=== PATIENT | female | born 1940 | race Caucasian/White ===

== ENCOUNTER 2016-09-12 15:45 | Emergency (ER) | payer MEDICARE, OTHER ==
[~2016-09-12] VITALS: Ht 160 cm; Wt 86.0 kg
[~2016-09-12 15:45] MED LIST: ALLE10TA5 PO; APIX5TAB PO; ATOR20TA PO; CITRTAB7 PO; CLON.5 PO; DEPA500T3 PO; DIOV160T3 PO; LEVO50TA4 PO; LEVO75TA3 PO; METO25CR PO; MIRTA15 PO; NEUR800T PO; PRIL40CA PO; VENL75TA91 PO; VENL75XR PO
[2016-09-12 15:56] VITALS: BP 149/92; PULSE 84; RESP 16; TEMP 98; O2SAT 97
--- NOTE | 2016-09-12 16:30 | PD ---
HPI Chief Complaint: Suicide Ideation/Attempt Time Seen by Provider: 16:20 Travel History International Travel<30 days: No Contact w/Intl Traveler<30days: No Traveled to known affect area: No History of Present Illness HPI 76-year-old female who reportedly has a history of bipolar disorder. She presents under Woods act initiated by her primary care physician today. According to her paperwork the patient said that she was feeling suicidal. The patient reports over the past 2 weeks she has been experiencing some pain in the lower portion of her abdomen. She had difficulty getting an appointment with her primary care physician, was finally able to see her today. When she arrived she was feeling emotional, she was crying and she has been experiencing some depression. She did say that she was feeling suicidal but now regrets saying that and she does not truly want to kill herself. In regards to the abdominal pain she describes it as an aching pain which is constant. She endorses occasional nausea. Denies vomiting, fevers or chills, flank pain, dysuria, vaginal bleeding or discharge, diarrhea. History of appendectomy in the past. No other complaints. PFSH Past Medical History Hx Anticoagulant Therapy: Yes (COUMADIN) Asthma: No Heart Rhythm Problems: No Cancer: No Cardiovascular Problems: Yes High Cholesterol: Yes Chest Pain: No Congestive Heart Failure: No COPD: No Cerebrovascular Accident: No Diabetes: No Diminished Hearing: No Endocrine: Yes GERD: Yes Genitourinary: No Headaches: Yes (Migraines) Hiatal Hernia: Yes Hypertension: Yes Immune Disorder: No Musculoskeletal: Yes Psychiatric: Yes (Previous diagnosed with bi-polar) Reproductive: No Respiratory: Yes (CURRENT MAXILLARY SINUSITIS) Migraines: Yes Seizures: No Sleep Apnea: Yes Thyroid Disease: Yes ?: Not Past Surgical History Abdominal Surgery: Yes (APPEND) Appendectomy: Yes Oral Surgery: Yes (EGD) Pacemaker: No Other Surgery: Yes Social History Alcohol Use: No Tobacco Use: No Substance Use: No Allergies-Medications (Allergen,Severity, Reaction): Coded Allergies: Penicillin (Unverified Allergy, Severe, HIVES, 11/27/11) Sulfa (Unverified Allergy, Unknown, 11/27/11) Lactose (Unverified Allergy, 11/27/11) Uncoded Allergies: CAT GUT SUTURE (Allergy, Severe, 11/27/11) Reported Meds & Prescriptions Reported Meds & Active Scripts Active Macrobid (Nitrofurantoin Monoh/Nitrofur Macro) 100 Mg Cap 100 Mg PO BID 7 Days Reported Coumadin (Warfarin) 5 Mg Tab 5 Mg PO SUTUTHFRSA ON HOLD OF 09/10/2016 Take 1 tablet daily at 5pm on Friday,Friday,,Friday and Friday Coumadin (Warfarin) 2.5 Mg Tab 2.5 Mg PO MOWE ON HOLD OF 09/10/2016 Take 1 tablet daily at 5pm on Friday and Friday Diovan (Valsartan) 160 Mg Tab 160 Mg PO DAILY Carafate (Sucralfate) 1 Gm Tab 1 Gm PO BID On empty stomach Sertraline (Sertraline HCl) 50 Mg Tab 50 Mg PO DAILY Robafen (Guaifenesin) 100 Mg/5 Ml Syp 10 Ml PO Q4HR PRN Potassium Chloride ER (Potassium Chloride) 20 Meq Tab 20 Meq PO DAILY Omeprazole 40 Mg Cap 40 Mg PO DAILY Ocusoft Baby Eyelid & Eye (Eyelid Cleansers) 1 Pad Pad 1 Applic TOPICAL TID Unfold and wrap on finger,close eye then gently cleanse eyelid using side to side strokes *do not touch eye* then rinse. Rulox Liq (Zjyyhfff-Uqexhvacj-Uknmhkjvroz Liq) 200-200-20 Mg/5 Ml Susp 15 Ml PO QID PRN Take between meals or as directed. Shake well. Maximum 120 ml/24 hrs. Mobic (Meloxicam) 7.5 Mg Tab 7.5 Mg PO DAILY Ativan (Lorazepam) 0.5 Mg Tab 0.5 Mg PO BID PRN Ativan (Lorazepam) 0.5 Mg Tab 0.5 Mg PO BID Levothyroxine (Levothyroxine Sodium) 75 Mcg Tab 75 Mcg PO DAILY Gabapentin 100 Mg Cap 100 Mg PO TID Lasix (Furosemide) 20 Mg Tab 20 Mg PO DAILY Deepali Allergy (Fexofenadine HCl) 180 Mg Tab 180 Mg PO DAILY Depakote ER (Divalproex Sodium) 500 Mg Venu 500 Mg PO BID Bentyl (Dicyclomine HCl) 10 Mg Cap 10 Mg PO TID PRN Coricidin HBP Chest Congestion (Dextromethorphan-Guaifenesin) 10-200 Mg Cap 2 Cap PO Q4H PRN Coreg (Carvedilol) 6.25 Mg Tab 6.25 Mg PO BID Calcium 600 + D (Calcium Carbonate-Vitamin D) 600-400 Mg-Unit Tab 2 Tab PO DAILY Lipitor (Atorvastatin Calcium) 40 Mg Tab 40 Mg PO HS Artificial Tears Opth Drops (Polyvinyl Alcohol) 1.4% Soln 1 Drop EACH EYE QID PRN Tylenol Extra Strength (Acetaminophen) 500 Mg Tab 500 Mg PO BID PRN Vitamin D-1000 (Cholecalciferol) 1,000 Unit Tab 1,000 Units PO DAILY Review of Systems Except as stated in HPI: all other systems reviewed are Neg Physical Exam Narrative GENERAL: Well-developed well-nourished female in no acute distress SKIN: Warm and dry. HEAD: Atraumatic. Normocephalic. EYES: Pupils equal and round. No scleral icterus. No injection or drainage. ENT: No nasal bleeding or discharge. Mucous membranes pink and moist. NECK: Trachea midline. No JVD. CARDIOVASCULAR: Regular rate and rhythm. No murmur appreciated. RESPIRATORY: No accessory muscle use. Clear to auscultation. Breath sounds equal bilaterally. GASTROINTESTINAL: Abdomen soft, epigastric/lower abdominal tenderness to palpation without guarding. No CVA tenderness. Nondistended. MUSCULOSKELETAL: No obvious deformities. No edema. NEUROLOGICAL: Awake and alert. No obvious cranial nerve deficits. Motor grossly within normal limits. Normal speech. PSYCHIATRIC: Depressed mood. Insight and judgment are intact. Data Data Last Documented VS Vital Signs Date Time Temp Pulse Resp B/P Pulse Ox O2 Delivery O2 Flow Rate FiO2 09/12/16 15:56 98.0 84 16 149/92 97 Orders Electrocardiogram (09/12/16 15:57) Complete Blood Count With Diff (09/12/16 15:57) Comprehensive Metabolic Panel (09/12/16 15:57) Psych Screen (09/12/16 15:57) Diet Regular Basic (09/12/16 Dinner) Drug Screen, Random Urine (09/12/16 15:57) Prothrombin Time / Inr (Pt) (09/12/16 15:57) Urinalysis - C+S If Indicated (09/12/16 16:16) Lipase (09/12/16 16:24) Ct Abd/Pel W Iv Contrast(Rout) (09/12/16 16:24) Iohexol 350 Inj (Omnipaque 350 Inj) (09/12/16 19:44) Urine Culture (09/12/16 19:25) Nitrofurantoin Monohyd Macrocr (Macrobid (09/12/16 20:30) Labs Laboratory Tests Test 09/12/16 09/12/16 16:08 19:25 White Blood Count 6.9 TH/MM3 Red Blood Count 4.63 MIL/MM3 Hemoglobin 13.4 GM/DL Hematocrit 40.1 % Mean Corpuscular Volume 86.7 FL Mean Corpuscular Hemoglobin 28.9 PG Mean Corpuscular Hemoglobin 33.3 % Concent Red Cell Distribution Width 13.7 % Platelet Count 218 TH/MM3 Mean Platelet Volume 8.8 FL Neutrophils (%) (Auto) 67.1 % Lymphocytes (%) (Auto) 23.7 % Monocytes (%) (Auto) 7.0 % Eosinophils (%) (Auto) 1.9 % Basophils (%) (Auto) 0.3 % Neutrophils # (Auto) 4.6 TH/MM3 Lymphocytes # (Auto) 1.6 TH/MM3 Monocytes # (Auto) 0.5 TH/MM3 Eosinophils # (Auto) 0.1 TH/MM3 Basophils # (Auto) 0.0 TH/MM3 CBC Comment DIFF FINAL Differential Comment Prothrombin Time 53.5 SEC Prothromb Time International 4.5 RATIO Ratio Sodium Level 132 MEQ/L Potassium Level 4.1 MEQ/L Chloride Level 94 MEQ/L Carbon Dioxide Level 29.6 MEQ/L Anion Gap 8 MEQ/L Blood Urea Nitrogen 14 MG/DL Creatinine 0.74 MG/DL Estimat Glomerular Filtration 76 ML/MIN Rate Random Glucose 93 MG/DL Calcium Level 8.8 MG/DL Total Bilirubin 0.4 MG/DL Aspartate Amino Transf 32 U/L (AST/SGOT) Alanine Aminotransferase 25 U/L (ALT/SGPT) Alkaline Phosphatase 50 U/L Total Protein 6.5 GM/DL Albumin 3.1 GM/DL Lipase 111 U/L Urine Color YELLOW Urine Turbidity CLEAR Urine pH 5.5 Urine Specific [place] 1.016 Urine Protein TRACE mg/dL Urine Glucose (UA) NEG mg/dL Urine Ketones 40 mg/dL Urine Occult Blood TRACE Urine Nitrite NEG Urine Bilirubin NEG Urine Urobilinogen LESS THAN 2.0 MG/DL Urine Leukocyte Esterase LARGE Urine RBC 5 /hpf Urine WBC 78 /hpf Urine Squamous Epithelial <1 /hpf Cells Urine Bacteria OCC /hpf Urine Hyaline Casts 3 /lpf Urine Mucus FEW /lpf Microscopic Urinalysis Comment CULTURE INDICATED Urine Opiates Screen NEG Urine Barbiturates Screen NEG Urine Amphetamines Screen NEG Urine Benzodiazepines Screen NEG Urine Cocaine Screen NEG Urine Cannabinoids Screen NEG MDM Medical Decision Making Medical Screen Exam Complete: Yes Emergency Medical Condition: Yes Medical Record Reviewed: Yes Differential Diagnosis Adjustment reaction, major depressive disorder, depressive disorder not otherwise specified, bipolar disorder, acute psychosis Pancreatitis, obstruction, gastritis, peptic ulcer disease, diverticulitis, mesenteric ischemia Narrative Course 76-year-old female presents under Woods act initiated by her primary care physician for depression, suicidal statements. The patient was seen by her primary care physician for evaluation of abdominal pain which she has been experiencing for 2 weeks. On examination she has epigastric, lower abdominal tenderness to palpation without guarding. Plans for basic lab work, CT abdomen and pelvis, urinalysis. Unfortunately there is a delay in obtaining the CT abdomen and pelvis because of 2 trauma alerts. The patient's lab work has been reviewed. Her INR is supratherapeutic at 4.5. She is aware of this based on INR testing as an outpatient 2 days ago, she has been holding her Coumadin for the past 2 days Mental health screening discussed with the patient. Psychiatric screen ordered. Urinalysis is consistent with urinary tract infection. Macrobid has been initiated. CT abdomen and pelvis is normal. The patient is medically cleared for psychiatric disposition. Diagnosis Primary Impression: Depression Qualified Code: F32.9 - Depression, unspecified depression type Additional Impressions: Urinary tract infection Qualified Code: N30.01 - Acute cystitis with hematuria Supratherapeutic INR Scripts Nitrofurantoin Monohydrate Macrocrystals (Macrobid)100 Mg [id number] Mg PO BID 7 Days Ref 0 Prov:Norris Fernando MD 09/12/16 Juwan Fay September 12, 2016 16:30
[2016-09-12 16:38] LABS: INTERNATIONAL NORMALIZED RATIO 4.5 RATIO; PROTHROMBIN TIME - PATIENT 53.5 SEC (9.8-11.6)
[2016-09-12 16:43] LABS: AUTOMATED NEUTROPHIL # 4.6 TH/MM3 (1.8-7.7); BASOPHIL % 0.3 % (0.0-2.0); EOSINOPHIL # 0.1 TH/MM3 (0-0.4); EOSINOPHIL % 1.9 % (0.0-4.0); HEMATOCRIT 40.1 % (35.0-46.0); HEMO FLAGS DIFF FINAL; LYMPH % 23.7 % (9.0-44.0); LYMPHOCYTE # 1.6 TH/MM3 (1.0-4.8); MEAN CELL VOLUME 86.7 FL (80.0-100.0); MEAN CORPUSCULAR HEMOGLOBIN 28.9 PG (27.0-34.0); MEAN CORPUSCULAR HGB CONC 33.3 % (32.0-36.0); NEUT % 67.1 % (16.0-70.0); PLATELET COUNT 218 TH/MM3 (150-450); RED BLOOD COUNT 4.63 MIL/MM3 (4.00-5.30); RED CELL DISTRIBUTION WIDTH 13.7 % (11.6-17.2); WHITE BLOOD COUNT 6.9 TH/MM3 (4.0-11.0)
[2016-09-12 16:53] LABS: ALT (GPT) 25 U/L (10-53); ANION GAP 8 MEQ/L (5-15); AST (GOT) 32 U/L (15-37); BICARBONATE 29.6 MEQ/L (21.0-32.0); BLOOD UREA NITROGEN 14 MG/DL (7-18); CHLORIDE 94 MEQ/L (98-107); GLOMERULAR FILTRATION RATE 76 ML/MIN (>89); POTASSIUM 4.1 MEQ/L (3.5-5.1); SODIUM (NA) 132 MEQ/L (136-145)
[2016-09-12 16:55] LABS: ALKALINE PHOSPHATASE 50 U/L (45-117); TOTAL BILIRUBIN ADULT 0.4 MG/DL (0.2-1.0)
[2016-09-12] MEDS ORDERED: VITA1000 PO (17:42)
[2016-09-12] MEDS ORDERED: ACET-703 PO (17:42)
[2016-09-12] MEDS ORDERED: COUM5TAB PO (18:05)
[2016-09-12] MEDS ORDERED: FEXO15TA PO (18:05)
[2016-09-12] MEDS ORDERED: OMEP40CA2 PO (18:05)
[2016-09-12] MEDS ORDERED: RULOSUS PO (18:05)
[2016-09-12] MEDS ORDERED: DIOV160T6 PO (18:05)
[2016-09-12] MEDS ORDERED: GABA100C4 PO (18:05)
[2016-09-12] MEDS ORDERED: POTA-163 PO (18:05)
[2016-09-12] MEDS ORDERED: COUM2.5T PO (18:05)
[2016-09-12] MEDS ORDERED: LEVO75TA3 PO (18:05)
[2016-09-12] MEDS ORDERED: DEPA500T3 PO (18:05)
[2016-09-12] MEDS ORDERED: MOBI7.5T PO (18:05)
[2016-09-12] MEDS ORDERED: CORICAP PO (18:05)
[2016-09-12] MEDS ORDERED: FURO1TAB62 PO (18:05)
[2016-09-12] MEDS ORDERED: ROBA100S5 PO (18:05)
[2016-09-12] MEDS ORDERED: POLY99.0 EACH EYE (18:05)
[2016-09-12] MEDS ORDERED: DICY10 PO (18:05)
[2016-09-12] MEDS ORDERED: CARV6.25 PO (18:05)
[2016-09-12] MEDS ORDERED: [UNRECOGNIZED DRUG - CODE] TOPICAL (18:05)
[2016-09-12] MEDS ORDERED: LORA-392 PO (18:05)
[2016-09-12] MEDS ORDERED: LIPI40TA PO (18:05)
[2016-09-12] MEDS ORDERED: SERT-132 PO (18:05)
[2016-09-12] MEDS ORDERED: CARA1TAB6 PO (18:05)
[2016-09-12] MEDS ORDERED: CALCTAB70 PO (18:05)
[2016-09-12] MEDS ORDERED: IOHEXOL 350 MG/ML 10 ML VIAL (for RAD DIAG) IV ONE (19:44)
[2016-09-12 19:50] LABS: BACTERIA, URINE OCC /hpf; BLOOD, URINE TRACE (NEG); GLUCOSE,URINE NEG (NEG); HYALINE CAST, URINE 3 /lpf (RARE); KETONE, URINE 40 mg/dL (NEG); MUCUS URINE FEW /lpf (OCC); NITRITE,URINE NEG (NEG); PH, URINE 5.5 (5.0-8.5); SQUAMOUS EPITHELIAL CELL URINE <1 /hpf (0-5); URINE COLOR YELLOW (YELLW/STRAW)
[2016-09-12 19:52] LABS: COMMENT (UR) CULTURE INDICATED; CULTURE IF INDICATED CULTURE INDICATED
[2016-09-12 20:04] LABS: AMPHETAMINE, URINE NEG (NEG); BARBITURATES, URINE NEG (NEG); COCAINE, URINE NEG (NEG)
--- NOTE | 2016-09-12 20:21 | RADRPT ---
EXAM DATE/TIME: 09/12/2016 19:30 [place] COMPARISON: No previous studies available for comparison. INDICATIONS : Lower abdominal pain. IV CONTRAST: 100 cc Omnipaque 350 (iohexol) IV ORAL CONTRAST: No oral contrast ingested. RADIATION DOSE: 14.88 CTDIvol (mGy) MEDICAL HISTORY : Hypertension. Reflux, and hiatal hernia SURGICAL HISTORY : Appendectomy. ENCOUNTER: Initial ACUITY: 1 day PAIN SCALE: 7/10 LOCATION: Bilateral lower quadrant abdomen TECHNIQUE: Volumetric scanning of the abdomen and pelvis was performed. Using automated exposure control and ad justment of the mA and/or kV according to patient size, radiation dose was kept as low as reasonably achievable to obtain optimal diagnostic quality images. FINDINGS: Lung bases are clear. Large hiatal hernia is evident. The liver is free of focal defects. The sple en, pancreas and adrenals are unremarkable. There is symmetrical renal function with a large parapelv ic cyst. Marked scoliosis is evident. Previous abdominal wall hernia is noted. There are scattered diverticula in the sigmoid colon without diverticulitis. Bladder is unremarkable . CONCLUSION: 1. I do not see an etiology for the patient's lower abdominal pain. 2. Marked scoliosis. Sandoval Martinez MD FACR on September 12, 2016 at 20:06 Board Certified Radiologist. This report was verified electronically.
[2016-09-12] MEDS ORDERED: MACR100C2 PO (20:26)
[2016-09-12 20:34] VITALS: BP 145/98; PULSE 81; RESP 16; TEMP 98.4; O2SAT 98
[2016-09-12] MEDS: NITROFURANTOIN MONOHYD MACROCR 100 MG CAP PO SCH (20:42)
[2016-09-13 00:10] VITALS: PULSE 79; RESP 16; O2SAT 97
[2016-09-13] MEDS ORDERED: ONDANSETRON ODT 4 MG TAB PO ONE (02:00)
[2016-09-13 08:21] VITALS: BP 121/86; PULSE 86; RESP 16; TEMP 98.3; O2SAT 94
--- NOTE | 2016-09-13 08:46 | PD ---
History of Present Illness Chief Complaint: Suicide Ideation/Attempt Time Seen by Provider: 08:30 Travel History International Travel<30 Days: No Contact w/Intl Traveler<30days: No Known affected area: No Legal Status Legal Status: Woods Act Woods Act Signed By: Carine Woods Act Comment: BA 09/12/16 at 1430 with thoughts of SI History of Present Illness: History of Present Illness HPI 76-year-old female with a history of bipolar disorder who presents to [facility] ED under a BA initiated by her primary care physician. The paperwork indicates that the patient told her PCP that she was thinking about suicide. As per ed documentation included in this report " The patient reports over the past 2 weeks she has been experiencing some pain in the lower portion of her abdomen. She had difficulty getting an appointment with her primary care physician, was finally able to see her today. When she arrived she was feeling emotional, she was crying and she has been experiencing some depression. She did say that she was feeling suicidal but now regrets saying that and she does not truly want to kill herself." Patient seen. Record reviewed. She has one previous admission to [facility] in 2015 after a suicide attempt by overdosing on Klonopin. Patient is awake, alert, oriented and cooperative. Speech is clear, logical and goal directed. Minor difficulty with word finding. No sushant or hypomania and no psychosis. Admits to feeling sad over her medical issues, missing her family who live in [facility] and she has not seen them in over one year. Denies any suicidal or homicidal ideation, intent or plan. " I don't want to kill myself. I just want help in coping with life. There is a psychiatric nurse at the [facility] where she lives and she has talked with her . She is waiting for an appointment with a psychiatrist. She also has a male friend at the [facility] that she is close with and finds him to be supportive. PFSH Past Medical History Hx Anticoagulant Therapy: Yes (COUMADIN) Arthritis: Yes Asthma: No Heart Rhythm Problems: No Cancer: No Cardiovascular Problems: Yes High Cholesterol: Yes Chest Pain: No Congestive Heart Failure: No COPD: No Cerebrovascular Accident: No Diabetes: No Diminished Hearing: No Endocrine: Yes Gastrointestinal Disorders: Yes GERD: Yes Genitourinary: No Headaches: Yes (Migraines) Hiatal Hernia: Yes Hypertension: Yes Immune Disorder: No Musculoskeletal: Yes Psychiatric: Yes (Previous diagnosed with bi-polar) Reproductive: No Respiratory: Yes (CURRENT MAXILLARY SINUSITIS) Migraines: Yes Seizures: No Sleep Apnea: Yes Thyroid Disease: Yes Tetanus Vaccination: Unknown Influenza Vaccination: No ?: Not Menopausal: Yes Past Surgical History Abdominal Surgery: Yes (APPEND) Appendectomy: Yes Oral Surgery: Yes (EGD) Pacemaker: No Other Surgery: Yes Psychiatric History Psychiatric History Hx Psychiatric Treatment: Inpatient: 23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 Last admission in 2014 in [facility] Has received ECT History of Inpatient Treatment: Yes Guns or firearms in home: No Social History . x 2 . 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 [employer] Lives in [facility] x 2 years Hx Alcohol Use: No Hx Tobacco Use: No Hx Substance Use: No Hx of Substance Use Treatment: No Family Psychiatric History Negative Allergies-Medications (Allergen,Severity, Reaction): Coded Allergies: Penicillin (Unverified Allergy, Severe, HIVES, 11/27/11) Sulfa (Unverified Allergy, Unknown, 11/27/11) Lactose (Unverified Allergy, 11/27/11) Uncoded Allergies: CAT GUT SUTURE (Allergy, Severe, 11/27/11) Reported Meds & Prescriptions Reported Meds & Active Scripts Active Macrobid (Nitrofurantoin Monoh/Nitrofur Macro) 100 Mg Cap 100 Mg PO BID 7 Days Reported Coumadin (Warfarin) 5 Mg Tab 5 Mg PO SUTUTHFRSA ON HOLD OF 09/10/2016 Take 1 tablet daily at 5pm on Friday,Friday,,Friday and Friday Coumadin (Warfarin) 2.5 Mg Tab 2.5 Mg PO ON HOLD OF 09/10/2016 Take 1 tablet daily at 5pm on Friday and Friday Diovan (Valsartan) 160 Mg Tab 160 Mg PO DAILY Carafate (Sucralfate) 1 Gm Tab 1 Gm PO BID On empty stomach Sertraline (Sertraline HCl) 50 Mg Tab 50 Mg PO DAILY Robafen (Guaifenesin) 100 Mg/5 Ml Syp 10 Ml PO Q4HR PRN Potassium Chloride ER (Potassium Chloride) 20 Meq Tab 20 Meq PO DAILY Omeprazole 40 Mg Cap 40 Mg PO DAILY Ocusoft Baby Eyelid & Eye (Eyelid Cleansers) 1 Pad Pad 1 Applic TOPICAL TID Unfold and wrap on finger,close eye then gently cleanse eyelid using side to side strokes *do not touch eye* then rinse. Rulox Liq (Dazkwokr-Wbezyhkgm-Cpyikkbyuai Liq) 200-200-20 Mg/5 Ml Susp 15 Ml PO QID PRN Take between meals or as directed. Shake well. Maximum 120 ml/24 hrs. Mobic (Meloxicam) 7.5 Mg Tab 7.5 Mg PO DAILY Ativan (Lorazepam) 0.5 Mg Tab 0.5 Mg PO BID PRN Ativan (Lorazepam) 0.5 Mg Tab 0.5 Mg PO BID Levothyroxine (Levothyroxine Sodium) 75 Mcg Tab 75 Mcg PO DAILY Gabapentin 100 Mg Cap 100 Mg PO TID Lasix (Furosemide) 20 Mg Tab 20 Mg PO DAILY Deepali Allergy (Fexofenadine HCl) 180 Mg Tab 180 Mg PO DAILY Depakote ER (Divalproex Sodium) 500 Mg Venu 500 Mg PO BID Bentyl (Dicyclomine HCl) 10 Mg Cap 10 Mg PO TID PRN Coricidin HBP Chest Congestion (Dextromethorphan-Guaifenesin) 10-200 Mg Cap 2 Cap PO Q4H PRN Coreg (Carvedilol) 6.25 Mg Tab 6.25 Mg PO BID Calcium 600 + D (Calcium Carbonate-Vitamin D) 600-400 Mg-Unit Tab 2 Tab PO DAILY Lipitor (Atorvastatin Calcium) 40 Mg Tab 40 Mg PO HS Artificial Tears Opth Drops (Polyvinyl Alcohol) 1.4% Soln 1 Drop EACH EYE QID PRN Tylenol Extra Strength (Acetaminophen) 500 Mg Tab 500 Mg PO BID PRN Vitamin D-1000 (Cholecalciferol) 1,000 Unit Tab 1,000 Units PO DAILY Review of Systems Gastrointestinal: COMPLAINS OF: Abdominal pain Musculoskeletal: COMPLAINS OF: Joint pain Psychiatric: COMPLAINS OF: Depression Exam Alert: Yes [place]: Person (ox4) Mood: Calm Affect: Appropriate Speech: Clear, Logical Eye Contact: Normal Memory Intact: Comment (no gross abnormality) Hallucinations: Other (denies any) Delusions: No Suicidal: Ideation (neagtive) Homicidal: Ideation (negative) MDM Medical Decision Making Medical Record Reviewed: Yes Assessment/Plan Does not meet criteria for BA or for inpatient treatment at this time. She is denying any suicidal or homicidal ideation intent or plan. Does not wish to be admitted at this time and is requesting to return to [facility] She will follow up with physician at [facility]. Cleared for discharge by psychiatry. Orders Complete Blood Count With Diff (09/12/16 15:57) Comprehensive Metabolic Panel (09/12/16 15:57) Psych Screen (09/12/16 15:57) Diet Regular Basic (09/12/16 Dinner) Drug Screen, Random Urine (09/12/16 15:57) Prothrombin Time / Inr (Pt) (09/12/16 15:57) Urinalysis - C+S If Indicated (09/12/16 16:16) Lipase (09/12/16 16:24) Ct Abd/Pel W Iv Contrast(Rout) (09/12/16 16:24) Iohexol 350 Inj (Omnipaque 350 Inj) (09/12/16 19:44) Urine Culture (09/12/16 19:25) Nitrofurantoin Monohyd Macrocr (Macrobid (09/12/16 20:30) Ondansetron Odt (Zofran Odt) (09/13/16 02:00) Electrocardiogram (09/12/16 21:41) Diet Regular Basic (09/13/16 Breakfast) Results Vital Signs Date Time Temp Pulse Resp B/P Pulse Ox O2 Delivery O2 Flow Rate FiO2 09/13/16 08:21 98.3 86 16 121/86 94 Room Air 09/13/16 00:10 79 16 97 09/12/16 20:34 98.4 81 16 145/98 98 09/12/16 15:56 98.0 84 16 149/92 97 Laboratory Tests Test 09/12/16 09/12/16 16:08 19:25 White Blood Count 6.9 Red Blood Count 4.63 Hemoglobin 13.4 Hematocrit 40.1 Mean Corpuscular Volume 86.7 Mean Corpuscular Hemoglobin 28.9 Mean Corpuscular Hemoglobin 33.3 Concent Red Cell Distribution Width 13.7 Platelet Count 218 Mean Platelet Volume 8.8 Neutrophils (%) (Auto) 67.1 Lymphocytes (%) (Auto) 23.7 Monocytes (%) (Auto) 7.0 Eosinophils (%) (Auto) 1.9 Basophils (%) (Auto) 0.3 Neutrophils # (Auto) 4.6 Lymphocytes # (Auto) 1.6 Monocytes # (Auto) 0.5 Eosinophils # (Auto) 0.1 Basophils # (Auto) 0.0 CBC Comment DIFF FINAL Differential Comment Prothrombin Time 53.5 Prothromb Time International 4.5 Ratio Sodium Level 132 Potassium Level 4.1 Chloride Level 94 Carbon Dioxide Level 29.6 Anion Gap 8 Blood Urea Nitrogen 14 Creatinine 0.74 Estimat Glomerular Filtration 76 Rate Random Glucose 93 Calcium Level 8.8 Total Bilirubin 0.4 Aspartate Amino Transf 32 (AST/SGOT) Alanine Aminotransferase 25 (ALT/SGPT) Alkaline Phosphatase 50 Total Protein 6.5 Albumin 3.1 Lipase 111 Urine Color YELLOW Urine Turbidity CLEAR Urine pH 5.5 Urine Specific [place] 1.016 Urine Protein TRACE Urine Glucose (UA) NEG Urine Ketones 40 Urine Occult Blood TRACE Urine Nitrite NEG Urine Bilirubin NEG Urine Urobilinogen LESS THAN 2.0 Urine Leukocyte Esterase LARGE Urine RBC 5 Urine WBC 78 Urine Squamous Epithelial <1 Cells Urine Bacteria OCC Urine Hyaline Casts 3 Urine Mucus FEW Microscopic Urinalysis Comment CULTURE INDICATED Urine Opiates Screen NEG Urine Barbiturates Screen NEG Urine Amphetamines Screen NEG Urine Benzodiazepines Screen NEG Urine Cocaine Screen NEG Urine Cannabinoids Screen NEG Date/Time Procedure Status Source Growth 09/12/16 19:25 Urine Culture Received Urine Random Urine Pending Diagnosis Primary Impression: Bipolar 1 disorder, depressed, mild Psychiatrically Cleared: Yes Med/ Other Pt Specific Info: No Change to Meds Prescriptions Nitrofurantoin Monohydrate Macrocrystals (Macrobid)100 Mg [id number] Mg PO BID 7 Days Ref 0 Prov:Norris Fernando MD 09/12/16 Disposition: 03 DISCHARGE TO SNF Condition: Stable Ana María Rendonvinicius Ramos [facility] September 13, 2016 08:46
[2016-09-13] MEDS: NITROFURANTOIN MONOHYD MACROCR 100 MG CAP PO SCH (09:25)
--- NOTE | 2016-09-13 21:21 | EKG ---
Date Performed: 09/12/2016 Time Performed: 21:41:44 PTAGE: 76 years EKG: Sinus rhythm WITH FREQUENT SUPRAVENTRICULAR PREMATURE COMPLEXES LOW QRS VOLTAGE IN PRECORDIAL LEADS LEFT ANTERIOR FASCICULAR BLOCK POSSIBLE ANTERIOR MYOCARDIAL INFARCTION ABNORMAL ECG PREVIOUS TRACING : 08/14/2014 14.32 Compared to prior tracing no significant change DOCTOR: Delio Javier Interpretating Date/Time 09/13/2016 21:19:09
== END 2016-09-13 10:23 ==
LOC: NEPD 15:45
DX: F31.31 Bipolar disorder, current episode depressed, mild (principal); N30.01 Acute cystitis with hematuria; B96.89 Other specified bacterial agents as the cause of diseases classified elsewhere; R79.1 Abnormal coagulation profile; Z79.01 Long term (current) use of anticoagulants; Z79.899 Other long term (current) drug therapy
CPT/HCPCS: 74177; 80053; 80307; 81001; 83690; 85025; 85610; 87086; 93005; 99284; Q9967